=== PATIENT | female | born 2000 | race Caucasian/White ===

== ENCOUNTER 2023-11-29 16:30 | Outpatient (CLI) | payer OTHER ==
[~2023-11-29] VITALS: Ht 170.2 cm; Wt 80.0 kg
--- NOTE | 2023-11-29 16:20 | NUR ---
PT ARRIVES AMBULATORY FROM CLINIC PER FOR ELEVATED BP'S. DENIES LOF/VB. DENIES PAINFUL CTX, BUT STATES "I DO HAVE SOME MILD ONES ON AND OFF", REPORTS POSITIVE MOVEMENT. CATEGORY 1 EFM TRACING. INITIAL BP 130/82. WILL CONTINUE TO MONITOR.
[2023-11-29 16:30] VITALS: BP 130/82; PULSE 88
[~2023-11-29 16:30] MED LIST: IBU600 MG PO; PRENATAL TABLET PO; ZOLOFT 25MG25 MG PO; ZOLOFT 50MG50 MG PO
[2023-11-29 16:40] VITALS: BP 136/89; PULSE 96
[2023-11-29] MEDS ORDERED: LR 1,000 ML IV PRN (16:45)
[2023-11-29 16:50] VITALS: BP 139/88; PULSE 92
[2023-11-29 17:00] VITALS: BP 130/82; BP 132/83; PULSE 86; PULSE 88; TEMP 97.9
[2023-11-29 17:04] LABS: BASO # 0.1 K/mm3 (0.0-0.2); BASO % 0.7 % (0.0-2.0); EOS % 0.1 % (0.0-4.0); GRAN % 68.3 % (42.2-75.2); HEMOGLOBIN 11.9 g/dl (12.5-16.0); LYMPH # 2.1 K/mm3 (1.2-3.4); LYMPH % 24.1 % (20.0-51.0); MEAN CELL VOLUME 75 fl (80.0-100.0); MEAN CORPUSCULAR HEMOGLOBIN 25 pg (27-31); MEAN CORPUSCULAR HGB CONC 34 g/dl (33.0-37.0); MEAN PLATELET VOLUME 11.4 fl (7.4-10.4); MONO # 0.6 K/mm3 (0.1-0.6); MONO % 6.5 % (1.7-9.3); PLATELET COUNT 240 K/mm3 (130-400); RED BLOOD COUNT 4.71 M/mm3 (4.10-5.30); REDCELL DISTRIBUTION WIDTH-CV 13.5 % (11.5-14.5)
[2023-11-29 17:11] LABS: HEMATOCRIT 35.4 % (37.0-47.0)
[2023-11-29 17:20] VITALS: BP 132/82
[2023-11-29 17:23] LABS: ALBUMIN 2.3 g/dL (3.5-5.0); BILIRUBIN,TOTAL 0.3 mg/dL (0.2-1.2); CALCIUM 8.4 mg/dL (8.4-10.2); CREATININE, serum 0.78 mg/dL (0.57-1.11); POTASSIUM 3.7 mEq/L (3.5-4.5); TOTAL PROTEIN 6.2 g/dl (6.2-8.1)
[2023-11-29 17:30] VITALS: BP 131/85; PULSE 74
--- NOTE | 2023-11-29 17:45 | NUR ---
ALL DC PAPERWORK AND PRECAUTIONS REVIEWED AND UNDERSTOOD WITH PATIENT. SEE PHYSICIAN NOTIFICATION. PT AMBULATORY FROM UNIT IN STABLE CONDITION WITH HER MOTHER AT THIS TIME. PLANS TO RETURN NEXT WEEK FOR SCHEDULED IOL UNLESS SYMPTOMES OR BLOOD PRESSURE WORSEN.
== END 2023-11-29 17:45 | disposition home or self-care (01) ==
LOC: LDRO 16:30 → LDR 16:31 → LDRO 17:45
PROVIDERS: Obstetrics & Gynecology
DX: O16.3 Unspecified maternal hypertension, third trimester (principal); Z3A.38 38 weeks gestation of pregnancy
CPT/HCPCS: OP

== ENCOUNTER 2023-12-04 09:09 | Inpatient (IN) | payer OTHER ==
[~2023-12-04] VITALS: Ht 170.2 cm; Wt 80.5 kg
[2023-12-04] VITALS (21 sets, daily range): BP systolic 126–167; BP diastolic 76–107; PULSE 56–81; TEMP 98.6–98.8
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
[2023-12-04] MEDS ORDERED: LR & Oxytocin 500 ML IV SCH (09:45)
[2023-12-04] MEDS ORDERED: LR 1,000 ML IV SCH (09:45)
[2023-12-04] MEDS ORDERED: LR 1,000 ML IV PRN (09:45)
[2023-12-04 10:04] LABS: BASO % 0.5 % (0.0-2.0); EOS % 0.5 % (0.0-4.0); GRAN # 4.1 K/mm3 (1.4-6.5); GRAN % 63.5 % (42.2-75.2); HEMATOCRIT 38.9 % (37.0-47.0); HEMOGLOBIN 12.8 g/dl (12.5-16.0); LYMPH # 1.8 K/mm3 (1.2-3.4); LYMPH % 27.5 % (20.0-51.0); MEAN CELL VOLUME 77 fl (80.0-100.0); MEAN CORPUSCULAR HEMOGLOBIN 25 pg (27-31); MEAN CORPUSCULAR HGB CONC 33 g/dl (33.0-37.0); MEAN PLATELET VOLUME 11.3 fl (7.4-10.4); MONO # 0.5 K/mm3 (0.1-0.6); MONO % 7.7 % (1.7-9.3); PLATELET COUNT 252 K/mm3 (130-400); RED BLOOD COUNT 5.06 M/mm3 (4.10-5.30); REDCELL DISTRIBUTION WIDTH-CV 14.2 % (11.5-14.5)
[2023-12-04] MEDS ORDERED: Influenza Virus Vaccine, Trivalent '24-25 0.5 ML ONCE TODAY IM SCH (10:15)
[2023-12-04 10:28] LABS: ALBUMIN 2.3 g/dL (3.5-5.0); BILIRUBIN,TOTAL 0.3 mg/dL (0.2-1.2); CREATININE, serum 0.73 mg/dL (0.57-1.11); POTASSIUM 3.7 mEq/L (3.5-4.5); TOTAL PROTEIN 6.5 g/dl (6.2-8.1)
--- NOTE | 2023-12-04 11:13 | NUR ---
PT REQUESTS EPIDURAL AT THIS TIME. SUGEY LESTER NOTIFIED AND ON HER WAY BACK, LR BOLUS AT THIS TIME.
[2023-12-04] MEDS ORDERED: ROPivacaine PF 0.2% 200 ML IV ONE (11:18)
--- NOTE | 2023-12-04 11:34 | NUR ---
PT SITTING UP AT BEDSIDE FOR EPIDURAL PLACEMENT PER SUGEY LESTER. 1128: PROCEDURE BEGINS 1133: TEST DOSE PER SUGEY LESTER. PT TOLERATED PROCEDURE VERY WELL. NO OTHER CONCERNS AT THIS TIME.
[2023-12-04] MEDS ORDERED: Naloxone 0.4 MG/ML VIAL IV PRN ×2 (12:00→13:00)
[2023-12-04] MEDS ORDERED: Ondansetron 4 MG/2 ML VIAL IV PRN (12:00)
[2023-12-04] MEDS ORDERED: ePHEDrine 50 MG/10 ML VIAL IV PRN (12:00)
[2023-12-04] MEDS ORDERED: diphenhydrAMINE 25 MG CAP PO PRN (12:00)
[2023-12-04] MEDS ORDERED: diphenhydrAMINE 50 MG/ML 1 ML VIAL IV PRN (12:00)
[2023-12-04] MEDS ORDERED: LR 1,000 ML IV ONE (12:00)
[2023-12-04] MEDS ORDERED: LR 500 ML IV PRN (12:00)
--- NOTE | 2023-12-04 12:48 | NUR ---
PT FEELS A LOT OF PRESSURE, THIS CALLED TO BEDSIDE. SVE COMPLETE/+1
[2023-12-04] MEDS ORDERED: oxyCODONE 5 MG TAB PO PRN (13:00)
[2023-12-04] MEDS ORDERED: Witch Hazel 50% Pads Bulk TUB TP PRN (13:00)
[2023-12-04] MEDS ORDERED: Tdap Vaccine 0.5 ML SYRINGE IM SCH (13:00)
[2023-12-04] MEDS ORDERED: Loratadine 10 MG TAB PO PRN (13:00)
[2023-12-04] MEDS ORDERED: Mag/Al Hydrox/Simeth Susp 30 ML CUP PO PRN (13:00)
[2023-12-04] MEDS ORDERED: Phenylephrine/Mineral Oil/Petrolatum 57 GM TUBE RC PRN (13:00)
[2023-12-04] MEDS ORDERED: Acetaminophen 500 MG TAB PO PRN (13:00)
[2023-12-04] MEDS ORDERED: Measles/Mumps/Rubella Virus Vaccine Live w Diluent 0.5 ML VIAL SQ SCH (13:00)
[2023-12-04] MEDS ORDERED: Ibuprofen 800 MG TAB PO SCH (13:00)
[2023-12-04] MEDS ORDERED: Magnes Hydrox (MOM) 80 MG/ML 30 ML CUP PO PRN (13:00)
--- NOTE | 2023-12-04 13:05 | NUR ---
1248: PT COMPLETE. 1250: NOTIFIED WHO IS AT THE NURSES STATION WELL CHARGE,RN AND NURSERY,RN. 1255: PT POSITIONED FOR PUSHING. PT PUSHES WITH . 1259: OF VIABLE FEMALE PER . IS PLACED ON MATERNAL ABDOMEN, CORD IS CLAMPED X2 PER AND CORD IS CUT PER FOB. INFANT MOVED TO MATERNAL CHEST FOR SKIN TO SKIN. CARE OF INFANT ASSUMED AT THIS TIME BY PRITI BRAVO. CORD BLOOD OBTAINED PER AND PASSED OFF TO CHARGE NURSE, PRITI WAITE. CORD BLOOD SENT TO LAB. 1303: OF INTACT PLACENTA PER , POST PITOCIN STARTS AT THIS TIME PER HOSPITAL POLICY AT 333ML/HR. ASSESSMENT OF VAGINAL LACERATION PER REVEALS INTACT PERINEUM. FUNDAL MASSAGE PER THIS RN, FUNDUS FIRMS UP QUICKLY WITH MINIMAL LOCHIA. DELIVERY QBL: 50. 1305: PT IS REPOSITIONED WITH ICEPACK AND PERIPAD. EPIDURAL TURNED OFF. POST RECOVERY BEGINS AT THIS TIME.
--- NOTE | 2023-12-04 15:29 | NUR ---
PT UP TO SIDE OF THE BED, DENIES FEELING DIZZY OR LIGHTHEADED. EPIDURAL CATHETER REMOVED, SMALL AMOUNT OF DRAINAGE NOTED. PRESSURE HELD AND PLACED SMALL PRESSURE DRESSING ON EPIDURAL SITE. DRAINAGE STOPPED, BUT WILL MONITOR CLOSELY. NOTIFIED SUGEY LESTER. PT AMBULATES TO BATHROOM, ATTEMPT TO VOID MADE, HOWEVER PATIENT WAS UNABLE TO VOID. PERICARE COMPLETED, PLACED ON ICEPACK AND PERIPAD WITH MESH UNDERWARE. CLEAN GOWN PLACED ON PATIENT. V/STOL LANDING SIGNAL OFFICER SOCKS ON, AND PATIENT AMBULATES TO ROOM 208. PT DENIES ANY NEEDS AT THIS TIME. NO OTHER CONCERNS. FAMILY AT BEDSIDE WITH PATIENT.
[2023-12-04] MEDS ORDERED: Sennosides/Docusate 8.6-50 MG TAB PO SCH (17:00)
[2023-12-04] MEDS ORDERED: traZODone 50 MG TAB PO PRN (21:00)
[2023-12-05 02:00] VITALS: BP 128/69; PULSE 76; TEMP 98.3
[2023-12-05 07:25] VITALS: BP 120/78; PULSE 62; TEMP 98
[2023-12-05] MEDS ORDERED: Sertraline 50 MG TAB PO SCH (09:00)
--- NOTE | 2023-12-05 11:06 | NUR ---
Initial visit; Patient and Grandma thanked Side Seam Tender for offering congratulations and God's blessings for the of their baby girl. Side Seam Tender thanked mom for choosing [facility].
[2023-12-05] MEDS ORDERED: IBU800 M1 PO (12:45)
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
== END 2023-12-05 14:55 | disposition home or self-care (01) | DRG 560 ==
LOC: LDRO 09:09 → LDR 09:46 → OB 14:52
PROVIDERS: Obstetrics & Gynecology; ADMIT Obstetrics & Gynecology
PROC: 10E0XZZ Delivery of Products of Conception, External Approach (ICD-10-PCS; principal; 2023-12-04)
DX: O99.344 Other mental disorders complicating childbirth (principal); Z37.0 Single live birth; O13.3 Gestational [pregnancy-induced] hypertension without significant proteinuria, third trimester; O99.52 Diseases of the respiratory system complicating childbirth; J30.2 Other seasonal allergic rhinitis; F41.9 Anxiety disorder, unspecified; Z3A.38 38 weeks gestation of pregnancy
CPT/HCPCS: J2590; J2795; J7120